=== PATIENT | female | born 1970 | race Caucasian/White ===

== ENCOUNTER 2020-07-13 14:44 | Outpatient (CLI) | payer OTHER, SELFPAY ==
--- NOTE | ~2020-07-13 | MR_ITS ---
EXAMINATION: MR lumbar spine wo con DATE: 07/13/2020 16:09 INDICATION: Left-sided sciatica TECHNIQUE: Magnetic resonance imaging (MRI) of the lumbar spine was performed without intravenous con trast. Sequences included sagittal T2-weighted FSE, sagittal T2-weighted FS FSE, sagittal T1-weighted FSE, and axial T2-weighted FSE. COMPARISON: None FINDINGS: The millimeter retrolisthesis L4 on L5. Vertebral body heights are normal. Normal marrow signal. Ayesha ular fissures at L4 and L5. Mild disc desiccation and mild disc height loss at L3-L4 and mild to mode rate disc height loss at L4-L5. Mild disc desiccation without significant disc height loss at L5-S1. The conus medullaris terminates at L1. There is normal signal in the caudal spinal cord. Paravertebra l soft tissues are unremarkable. The following disc levels are specifically discussed: T12-L1: Disc is minimally bulging. There is mild right and minimal left facet joint osteoarthritis. T here is no neural foraminal stenosis. There is no central canal stenosis. L1-L2: Disc is minimally bulging. There is mild right and minimal left facet joint osteoarthritis. Th ere is no neural foraminal stenosis. There is no central canal stenosis. L2-L3: Disc is minimally bulging. There is mild right and minimal left facet joint osteoarthritis. Th ere is no neural foraminal stenosis. There is no central canal stenosis. L3-L4: Disc is mildly bulging. There is hypertrophy of the ligamentum flavum. There is mild left and mild to moderate right facet joint osteoarthritis. There is mild bilateral neural foraminal stenosis. There is mild central canal stenosis. L4-L5: Disc is mildly bulging with superimposed annular fissure and prominent central disc extrusion which extends 4 mm caudal to the level of the superior endplate of L5 and measures approximately 1.4 cm left to right and 5 mm AP. There is hypertrophy of the ligamentum flavum. There is moderate right and mild to moderate left facet joint osteoarthritis. There is mild left and mild to moderate right neural foraminal stenosis. There is moderate to severe central canal stenosis with small amount of re sidual CSF signal between the centrally clustered nerve roots. There is narrowing of the lateral rece sses, mild on the right and moderate on the left which exerts mass effect upon the traversing bilater al L5 nerve roots. L5-S1: Disc is mildly bulging with annular fissure and small central disc extrusion with disc materia l extending a couple millimeters cephalad to the level of the inferior endplate of L5. There is mild to moderate bilateral facet joint osteoarthritis. There is mild right and mild to moderate left neura l foraminal stenosis. There is mild central canal stenosis. IMPRESSION: 1. Mild to moderate lumbar spondylosis most notable for moderate sized central disc extrusion at L4-L 5 which results in moderate to severe central canal stenosis as well as compression of the traversing left L5 nerve roots at the lateral recesses, left greater than right. Correlate clinically for muscl e weakness of great toe extension and sensory change of the medial foot and great toe. Reviewed, dictated and finalized at location [facility]. [employer] IMPRESSION: 1. Mild to moderate lumbar spondylosis most notable for moderate sized central disc extrusion at L4-L5 which results in moderate to severe central canal steno sis as well as compression of the traversing left L5 nerve roots at the lateral recesses, left greater than right. Correlate clinically for muscle weakness of great toe extension and sensory change of the medial foot and great toe.
== END 2020-07-13 14:45 | disposition home or self-care (01) ==
PROVIDERS: Family Provider Family Medicine; PCP Family Medicine; Visit Provider Family Medicine
DX: M54.32 Sciatica, left side (principal); M47.896 Other spondylosis, lumbar region
CPT/HCPCS: 72148

== ENCOUNTER 2022-03-31 09:27 | Outpatient (CLI) | payer OTHER, SELFPAY | END 2022-03-31 09:28 | disposition home or self-care (01) | LOC: ANHGOSHLAB 09:30 | PROVIDERS: PCP Family Medicine; Visit Provider Physician Assistant | DX: E55.9 Vitamin D deficiency, unspecified (principal); F41.1 Generalized anxiety disorder; I10 Essential (primary) hypertension; Z79.899 Other long term (current) drug therapy | CPT/HCPCS: 99199; 36415 ==

== ENCOUNTER 2022-07-12 11:03 | Day surgery (SDC) | payer OTHER, SELFPAY ==
[2022-05-10 13:57] VITALS: BMI 27.9
[2022-06-29 14:34] VITALS: BMI 27.2
--- NOTE | 2022-07-12 07:54 | WPDANESEPPF ---
Anes - Initial Pre Proc Eval Procedure: Operation Date: 07/12/22 14:00 Proposed Procedures p Screening Colonoscopy - Chi Jack MD Date/Time: 07/12/22 07:54 Surgeon: Chi Jack MD Pre Op Diagnosis: Neoplasm Screening Patient Data Age: 52 Gender: F Height: 1.7 m Weight: 79 kg Allergies Allergy/AdvReac Type Severity Reaction Status Date / Time Penicillins Allergy Unknown mouth sores Verified 07/12/22 13:19 Home Medications Medication Instructions Recorded Confirmed Type multivitamin,[id number]-[id number] 1 tablet PO DAILY 05/31/19 07/12/22 History (Complete Multivitamin tablet) fluoxetine 10 mg capsule 10 mg PO DAILY #90 caps 03/31/22 07/12/22 Rx irbesartan 150 mg tablet 150 mg PO DAILY #90 tabs 03/31/22 07/12/22 Rx celecoxib 100 mg capsule (Celebrex) 100 mg PO DAILY 06/29/22 07/12/22 History fluticasone propionate 50 1 spray intranasal PRN PRN Allergy 06/29/22 07/12/22 History mcg/actuation nasal Symptoms spray,suspension (Flonase Allergy Relief) betamethasone dipropionate 0.05 % 1 applic topical BID PRN rash #45 07/04/22 07/12/22 Rx topical cream grams azithromycin 250 mg tablet See Rx Instructions PO .COMPLEX #6 07/06/22 07/12/22 Rx tabs fluticasone furoate 200 1 inh inhalation DAILY #60 ea 07/06/22 07/12/22 Rx mcg-vilanterol 25 mcg/dose inhalation powder (Breo Ellipta) methylprednisolone 4 mg tablets in See Rx Instructions PO PER PKG DIR 07/06/22 07/12/22 Rx a dose pack (Medrol (Melchor)) #21 ea Patient hx anesthesia problems: none Family hx anesthesia problems: none Results Review: All pre-operative results and documents have been reviewed as part of the pre-operative evaluation. [facility] Past Medical History Medical History (Updated 07/12/22 @ 07:55 by Demarcus Jameson DO) Essential (primary) hypertension Generalized anxiety disorder Family History Family History Father Family history of deafness Other Cerebrovascular accident Diabetes mellitus Family history of cardiovascular disease Family history of hypercholesterolemia Hypertension Social History Social History Smoking status: Never smoker Alcohol intake: current Substance use: never Substance use type: does not use Living arrangements: with family Spiritual care concerns: No Anes - Eval Final PreProcedure Day of Procedure 07/12/22 07:54 Patient weight: overweight Heart: regular rate and rhythm Lungs: clear to auscultation Airway: Mallampati scale class II Neurological: alert and oriented Last oral intake: >/= 8 hours ASA classification: II Emergent: no Anesthetic plan: proceed Anesthesia type and monitoring: general GIVS and standard monitoring Results Review: All pre-operative results and documents have been reviewed as part of the pre-operative evaluation. Informed Consent: The patient's anesthetic plan and its attendant risks and benefits were discussed with the patient/family/POA. Questions were solicited and answers provided to the satisfaction of the patient/family/POA.
[2022-07-12 12:50] VITALS: BP 145/96; PULSE 76; RESP 20; TEMP 36.4; O2SAT 98
[2022-07-12] MEDS: LACTATED RINGERS 1,000 ML 150 ML IV CONT (13:23)
--- NOTE | 2022-07-12 13:27 | PM.HPGS ---
History of Present Illness History of Present Illness Consent: Risks, benefits, and alternatives have been discussed and questions answered. Patient agrees to proceed with procedure. Chief complaint: Neoplasm Screening Narrative: Dianne Adam is a 52 year old female here for first screening colonoscopy Review of Systems Constitutional: Constitutional: Denies headache(s) and Denies weakness Eyes: Eyes: Denies blurry vision ENT: Reports Normal hearing present, Denies headache(s) and Denies neck pain Cardiovascular: Cardiovascular: Denies chest pain and Denies dyspnea Respiratory: Respiratory: Denies dyspnea Gastrointestinal: Gastrointestinal: Reports no additional gastrointestinal complaints Genitourinary: Genitourinary: Denies dysuria Musculoskeletal: Musculoskeletal: Denies neck pain Integumentary/Breasts: Skin/Breast: Denies dry skin Neurologic: Reports Normal hearing present, Denies headache(s) and Denies weakness Psychiatric: Psychiatric: Denies anxiety Endocrine: Endocrine: Denies change in body appearance Hematologic/Lymphatic: Hematologic/Lymphatic: Denies easy bleeding Allergic/Immunologic: Allergic/Immunologic: Denies urticaria PMF Past Medical History Medical History (Updated 07/12/22 @ 07:55 by Demarcus Jameson DO) Essential (primary) hypertension Generalized anxiety disorder Family History Family History Father Family history of deafness Other Cerebrovascular accident Diabetes mellitus Family history of cardiovascular disease Family history of hypercholesterolemia Hypertension Social History Social History Smoking status: Never smoker Alcohol intake: current Substance use: never Substance use type: does not use Living arrangements: with family Spiritual care concerns: No Meds Home Medications and Allergies Home Medications Medication Instructions Recorded Confirmed Type multivitamin,ap-[id number] 1 tablet PO DAILY 05/31/19 07/12/22 History (Complete Multivitamin tablet) fluoxetine 10 mg capsule 10 mg PO DAILY #90 caps 03/31/22 07/12/22 Rx irbesartan 150 mg tablet 150 mg PO DAILY #90 tabs 03/31/22 07/12/22 Rx celecoxib 100 mg capsule (Celebrex) 100 mg PO DAILY 06/29/22 07/12/22 History fluticasone propionate 50 1 spray intranasal PRN PRN Allergy 06/29/22 07/12/22 History mcg/actuation nasal Symptoms spray,suspension (Flonase Allergy Relief) betamethasone dipropionate 0.05 % 1 applic topical BID PRN rash #45 07/04/22 07/12/22 Rx topical cream grams azithromycin 250 mg tablet See Rx Instructions PO .COMPLEX #6 07/06/22 07/12/22 Rx tabs fluticasone furoate 200 1 inh inhalation DAILY #60 ea 07/06/22 07/12/22 Rx mcg-vilanterol 25 mcg/dose inhalation powder (Breo Ellipta) methylprednisolone 4 mg tablets in See Rx Instructions PO PER PKG DIR 07/06/22 07/12/22 Rx a dose pack (Medrol (Melchor)) #21 ea Allergies Allergy/AdvReac Type Severity Reaction Status Date / Time Penicillins Allergy Unknown mouth sores Verified 07/12/22 13:19 Vital Signs Vital Signs - 24 hr 07/12/22 12:50 Temperature 97.5 F L Pulse Rate 76 Respiratory Rate 20 Blood Pressure 145/96 H Pulse Oximetry 98 Oxygen Delivery Room Air Exam Const: General: comfortable and no acute distress HENMT: Face/Nose/Sinus: Normal nares present Eyes: General: appearance normal, both eyes and all related structures Neck: Neck: no JVD Resp: Auscultation: clear to auscultation bilaterally Cardio: Rate: regular rate Rhythm: regular rhythm GI: Inspection: non-distended GI Palp: Yes Soft to palpation Skin: General skin exam: normal color Neuro: General: gait normal Speech: normal speech Extrem: General: normal to inspection Psych: Mental Status: mental status grossly normal Assessment and Plan Assessment and plan
[2022-07-12 13:51] VITALS: BP 114/72; PULSE 76; RESP 18; O2SAT 96
[2022-07-12 14:01] VITALS: BP 130/84; PULSE 78; RESP 20; O2SAT 97
[2022-07-12 14:11] VITALS: BP 126/84; PULSE 84; RESP 20; O2SAT 97
--- NOTE | 2022-07-12 14:24 | WPDANESPN ---
Anes - Prog Note Post-Op Date/Time: 07/12/22 14:24 Cardiovascular status: normal Respiratory status: normal Airway patency: baseline Mental status: baseline Post-Op hydration status: normal Vital Signs: Last Vital Signs Temp 36.4 C L 07/12/22 12:50 Pulse 84 07/12/22 14:11 Resp 20 07/12/22 14:11 BP 126/84 07/12/22 14:11 Pulse Ox 97 07/12/22 14:11 O2 Del Method Room Air 07/12/22 14:11 Pain Score (VAS): 0 I/O: Intake & Output 07/11/22 07/12/22 07/12/22 23:59 07:59 15:59 Intake Total 300 Balance 300 Post-procedural complaints: none Patient Feedback: Patient satisfied with anesthetic care. Other Findings: Patient vital signs back to baseline. Patient denies nausea and vomiting. Patient's pain under control. Patient OK for discharge.
== END 2022-07-12 14:30 | disposition home or self-care (01) ==
PROVIDERS: PCP Physician Assistant; Visit Provider Internal Medicine Gastroenterology
PROC: 0DJD8ZZ Inspection of Lower Intestinal Tract, Via Natural or Artificial Opening Endoscopic (ICD-10-PCS; CPT 45378; principal; 2022-07-12 14:00)
DX: Z12.11 Encounter for screening for malignant neoplasm of colon (principal)
CPT/HCPCS: 45378

== ENCOUNTER 2023-06-13 09:44 | Outpatient (CLI) | payer OTHER, SELFPAY ==
[2023-06-13 19:23] LABS: Alanine Aminotransferase 60 U/L (6-35); Albumin Level 3.8 g/dL (3.5-5.1); Alkaline Phosphatase 100 U/L (38-126); Anion Gap 8 mmol/L (8-16); Aspartate Amino Transferase 86 U/L (14-36); Bilirubin,Total 0.4 mg/dL (0.2-1.3); Blood Urea Nitrogen 23 mg/dL (7-17); Carbon Dioxide 27 mmol/L (22-30); Chloride 103 mmol/L (98-107); Cholesterol 226 mg/dL (0-200); Estimated Glomerular Filt Rate > 60; Glucose 79 mg/dL (65-110); HDL Direct 63 mg/dL; Potassium 3.9 mmol/L (3.4-5.0); Sodium 138 mmol/L (137-145); Triglycerides 76 mg/dL (<150)
[2023-06-13 19:34] LABS: LDL Cholesterol Direct 119 mg/dL
[2023-06-13 19:39] LABS: Basophils Percent Auto 1.2 % (0.2-1.2); Eosinophils Absolute Auto 0.1 K/mm3 (0-0.3); Eosinophils Percent Auto 3.1 % (0-4.4); Hematocrit 40.6 % (37.0-47.0); Hemoglobin 12.3 g/dL (12.0-15.0); Immature Granulocyte Absolute 0.01 K/mm3 (0.00-0.031); Immature Granulocyte Percent A 0.3 % (0-0.5); Lymphocytes Percent Auto 33.8 % (18.3-44.2); Mean Corpuscular HGB Conc 30.3 g/dl (32-36); Mean Corpuscular Hemoglobin 28.4 pg (26-34); Mean Corpuscular Volume 93.8 fl (80-100); Mean Platelet Volume 11.2 fl (7.4-10.4); Monocytes Absolute Auto 0.4 K/mm3 (0.1-0.6); Monocytes Percent Auto 11.4 % (2.6-8.5); Neutrophils Absolute Auto 1.6 K/mm3 (1.3-6.7); Neutrophils Percent Auto 50.2 % (45.5-73.1); Platelet Count Result 230 k/mm3 (150-375); Red Blood Count 4.33 M/mm3 (4.2-5.4); Red Cell Distribution Width 12.5 % (11.5-14.5); White Blood Count 3.3 K/mm3 (4.5-10.0)
[2023-06-16 12:07] LABS: Vitamin D 1,25 (OH)2 Total 39 pg/mL (18-72); Vitamin D2 1,25 (OH)2 <8 pg/mL; Vitamin D3 1,25 (OH)2 39 pg/mL
== END 2023-06-13 09:45 | disposition home or self-care (01) ==
LOC: ANHGOSHLAB 09:45
PROVIDERS: PCP Family Medicine; Visit Provider Physician Assistant
DX: F41.1 Generalized anxiety disorder (principal); I10 Essential (primary) hypertension; E55.9 Vitamin D deficiency, unspecified; E78.5 Hyperlipidemia, unspecified
CPT/HCPCS: 36415; 80053; 80061; 82652; 84443; 85025

== ENCOUNTER 2023-06-16 14:30 | Outpatient (CLI) | payer OTHER, SELFPAY ==
[2023-06-16 18:46] LABS: Eosinophils Absolute Auto 0.1 K/mm3 (0-0.3); Eosinophils Percent Auto 1.4 % (0-4.4); Hematocrit 38.7 % (37.0-47.0); Hemoglobin 12.2 g/dL (12.0-15.0); Immature Granulocyte Absolute 0.01 K/mm3 (0.00-0.031); Immature Granulocyte Percent A 0.2 % (0-0.5); Lymphocytes Absolute Auto 1.54 K/mm3 (0.9-3.2); Mean Corpuscular HGB Conc 31.5 g/dl (32-36); Mean Corpuscular Hemoglobin 28.4 pg (26-34); Mean Platelet Volume 10.8 fl (7.4-10.4); Monocytes Absolute Auto 0.3 K/mm3 (0.1-0.6); Monocytes Percent Auto 7.9 % (2.6-8.5); Neutrophils Absolute Auto 2.2 K/mm3 (1.3-6.7); Neutrophils Percent Auto 52.5 % (45.5-73.1); Platelet Count Result 252 k/mm3 (150-375); Red Cell Distribution Width 12.5 % (11.5-14.5); White Blood Count 4.2 K/mm3 (4.5-10.0)
[2023-06-16 18:58] LABS: Rheumatoid Factor < 12.0 IU/ML (<12)
[2023-06-16 19:00] LABS: Alanine Aminotransferase 47 U/L (6-35); Alkaline Phosphatase 89 U/L (38-126); Aspartate Amino Transferase 48 U/L (14-36); Bilirubin,Total 0.5 mg/dL (0.2-1.3)
[2023-06-16 19:31] LABS: Hepatitis B Surface Antigen Negative (Negative)
[2023-06-16 19:36] LABS: HAV RESULT Negative (Negative); Hepatitis B Core IgM Result Negative (Negative)
[2023-06-16 19:48] LABS: Hepatitis C Virus Antibody Negative (Negative)
[2023-06-19 11:54] LABS: EBV Nuclear Ab Interpretation Past; EBV Virus Capsid Ag IgM Ab <36.00 U/mL (<36.00)
[2023-06-20 01:50] LABS: ANA Cascade Screen Negative (Negative)
== END 2023-06-16 14:31 | disposition home or self-care (01) ==
LOC: ANHGOSHLAB 14:32
PROVIDERS: PCP Family Medicine; Visit Provider Family Medicine
DX: L50.9 Urticaria, unspecified (principal)
CPT/HCPCS: 36415; 80074; 80076; 85025; 86038; 86225; 86235; 86364; 86430; 86664; 86665